=== PATIENT | female | born 1970 | race Caucasian/White ===

== ENCOUNTER 2022-03-06 23:53 | Emergency (ER) | payer OTHER ==
[2022-03-07 00:07] VITALS: BP 135/88; PULSE 68; RESP 16; TEMP 97.7; BMI 26.5
[2022-03-07 00:47] LABS: BASO % 0.6 % (0-2.0); EOS % 4.9 % (0-4.5); HEMATOCRIT 37.1 % (32.4-45.2); HEMOGLOBIN 12.4 GM/dL (10.7-15.3); MCH 30.8 pg (25.7-33.7); MCHC 33.5 g/dl (32.0-36.0); MEAN CELL VOLUME 92.1 fl (80-96); NEUT % 38.5 % (42.8-82.8); PLATELET COUNT 249 10^3/uL (134-434); RBC 4.02 M/mm3 (3.60-5.2); RDW 14.6 % (11.6-15.6); WHITE BLOOD COUNT 6.2 K/mm3 (4.0-10.0)
[2022-03-07 01:07] LABS: BLOOD UREA NITROGEN 25.5 mg/dL (7-18); CALCIUM 8.9 mg/dL (8.5-10.1)
[2022-03-07 01:09] LABS: CREATININE 0.6 mg/dL (0.55-1.3)
[2022-03-07 01:12] LABS: BILIRUBIN,TOTAL 0.3 mg/dL (0.2-1); TOT PROT 7.8 g/dl (6.4-8.2)
== END 2022-03-07 01:34 | disposition home or self-care (01) ==
LOC: FER 23:53
DX: R07.9 Chest pain, unspecified (principal)
CPT/HCPCS: 36415; 71045-TC-FY; 80053; 84484; 85025; 93005; 99285-25